=== PATIENT | female | born 1985 | race Caucasian/White ===

== ENCOUNTER → 2017-02-05 | Day surgery (SDC) | payer BC ==
[~2017-02-05] VITALS: Ht 165.1 cm; Wt 89.0 kg
[~2017-02-05] MED LIST: APREPITANT 40 MG CAP ONE; CHLORHEXIDINE GLUCONATE 2 % 1 PACK (2 CLOTHS) TOPICAL PRN; DEXAMETHASONE SOD PHOS 4 MG/ML VIAL ONE; DO NOT ADM ANY ANTICOAGULANT DRUGS PRN; FAMOTIDINE 20 MG/2 ML VIAL ONE; FLINCHW7 PO; IBUP600 PO; KETOROLAC TROMETHAMINE 30 MG/ML (IVP) VIAL IV PUSH ONE; LACTATED RINGER'S 1000 ML IV PRN; LIDOCAINE HCL 1% PF 5 ML SYRINGE OTHER ONE; METOPROLOL TARTRATE 25 MG TAB PO PRN; MIDAZOLAM HCL 2 MG/2 ML VIAL ONE; ONDANSETRON HCL 4 MG/2 ML VIAL IV PUSH ONE; OXYC1SOL5 PO; PERC5TAB12 PO; PERI8.6T PO; POVIDONE IODINE 5% (ANTISEPSIS KIT) 4 APPLICATIONS EACH NARE PRN; PROPOFOL 200 MG/20 ML AMP IV ONE; SERT25TA83 PO; SODIUM CHLORID 0.9% 500 ML IV PRN; ePHEDrine/NS 25 MG/5 ML SYR IV ONE
[2017-02-05 11:14] LABS: AUTOMATED NEUTROPHIL # 5.7 TH/MM3 (1.8-7.7); BASOPHIL # 0.1 TH/MM3 (0-0.2); BASOPHIL % 0.8 % (0.0-2.0); EOSINOPHIL # 0.1 TH/MM3 (0-0.4); EOSINOPHIL % 0.7 % (0.0-4.0); HEMATOCRIT 40.1 % (35.0-46.0); HEMO FLAGS DIFF FINAL; LYMPH % 24.9 % (9.0-44.0); LYMPHOCYTE # 2.1 TH/MM3 (1.0-4.8); MEAN CELL VOLUME 85.4 FL (80.0-100.0); MEAN CORPUSCULAR HEMOGLOBIN 29.2 PG (27.0-34.0); MEAN CORPUSCULAR HGB CONC 34.2 % (32.0-36.0); MONO % 5.4 % (0.0-8.0); NEUT % 68.2 % (16.0-70.0); PLATELET COUNT 238 TH/MM3 (150-450); RED CELL DISTRIBUTION WIDTH 13.5 % (11.6-17.2); WHITE BLOOD COUNT 8.3 TH/MM3 (4.0-11.0)
--- NOTE | 2017-02-05 13:17 | HHI.DCPOC ---
Discharge Care Plan Diagnosis: (1) Missed Report Symptoms to Your Doctor -Temperature above 100.5 degrees -Redness, of incision or excessive or foul smelling drainage -Unusual pain or calf pain -Increased vaginal bleeding -Painful or difficulty urinating -Feelings of extreme sadness or anxiety after 2 weeks Goals to Promote Your Health * To prevent worsening of your condition and complications * To maintain your health at the optimal level Directions to Meet Your Goals Take your medications as prescribed Follow your dietary instruction Follow activity as directed Ensure plenty of rest for recovery Drink fluids for hydration Keep your appointments as scheduled Take your immunizations and boosters as scheduled If your symptoms worsen call your PCP, if no PCP go to Urgent Care Center or Emergency Room Smoking is Dangerous to Your Health. Avoid second hand smoke Call the 24-hour crisis hotline for domestic abuse at Sukumar Boyle MD Feb 05, 2017 13:17
[2017-02-05 14:17] VITALS: BP 113/67; PULSE 76; RESP 18; TEMP 97.8; O2SAT 98
--- NOTE | 2017-02-05 22:23 | MP ---
cc: JAMES BOYLE DATE OF SURGERY 02/05/17 PROCEDURE Dilatation curettage with suction curette. PREOPERATIVE DIAGNOSIS Missed . POSTOPERATIVE DIAGNOSIS Miss SURGEON Dr. Maynor Boyle ESTIMATED BLOOD LOSS 200 mL COMPLICATIONS None FINDINGS Products of conception ANESTHESIA General. PROCEDURE IN DETAIL After informed consent, the patient was taken to the operating room where she was placed under general anesthesia. Time-out was taken. The patient was positioned in candy-cane stirrups. The abdomen perineum and vagina were prepped and draped in normal sterile fashion. Bladder had been drained prior to entering the operating room. The uterus was already open, was easily dilated to accommodate an 8-mm suction curette. We sounded the uterus to 10 cm. The suction curette was passed through the fundus. All products of conception were evacuated without difficulty. Sharp curette was passed in all four quadrants until there was no remaining products of conception and suction curette was passed one last time. At the end of procedure, tenaculum was removed from the cervix. All instruments removed from the vagina. Lap and instrument counts were reported as correct. MD YASMEEN Eden/ /1:21 PM /10:22 PM
== END | disposition home or self-care (01) ==
LOC: HSDC 10:12
PROVIDERS: ATTEND Obstetrics & Gynecology
DX: O02.1 Missed abortion (principal)
CPT/HCPCS: 01965; 59820; 85025; 88305; J1100; J1885; J2250; J2405; J3010; J7120; J8501